=== PATIENT | male | born 1980 | race Caucasian/White ===

== ENCOUNTER 2022-02-12 12:44 | Emergency (ER) | payer OTHER, SELFPAY ==
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
[2022-02-12 12:52] VITALS: BP 155/88; PULSE 102; O2SAT 96
[2022-02-12 12:53] VITALS: BP 137/64; PULSE 101; RESP 12; TEMP 36.5; O2SAT 97
[2022-02-12 12:54] VITALS: BP 137/64; PULSE 95; RESP 16; O2SAT 97; BMI 22.9
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
--- NOTE | 2022-02-12 12:58 | ECG_ITS ---
Test Reason : syncope Blood Pressure : / mmHG Vent. Rate : 081 BPM Atrial Rate : 081 BPM P-R Int : 170 ms QRS Dur : 110 ms QT Int : 366 ms P-R-T Axes : 052 050 048 degrees QTc Int : 425 ms Normal sinus rhythm Incomplete right bundle branch block Borderline ECG No previous ECGs available Referred By: Pooja Contreras Electronically Signed By:Teo Herman
[2022-02-12] MEDS: Ketorolac Tromethamine 15 MG/ML VIAL IM (13:15)
[2022-02-12] MEDS: Cyclobenzaprine HCl 5 MG TABLET PO (13:16)
[2022-02-12] MEDS: Ondansetron ODT 4 MG TAB.RAPDIS TRANSLINGU (14:09)
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
[2022-02-12 14:52] LABS: MANUAL DIFF FLAG NO
[2022-02-12 15:03] LABS: Basophils Percent Auto 0.1 % (0-2); Hematocrit 40.7 % (42.0-52.0); Hemoglobin 13.9 g/dl (14.0-18.0); Imm Gran Abs Auto 0.17 X10*3/uL (0.00-0.03); Lymphocytes Absolute Auto 0.6 X10*3/uL (1.2-4.9); Lymphocytes Percent Auto 3.3 % (20-40); Mean Corpuscular HGB Conc 34.2 g/dl (31.0-36.0); Mean Corpuscular Hemoglobin 31.7 pg (27.0-33.0); Mean Corpuscular Volume 92.9 fL (80.0-98.0); Mean Platelet Volume 10.6 fL (9.4-12.4); Monocytes Absolute Auto 1.2 X10*3/uL (0.1-1.2); Neutrophils Absolute Auto 15.5 x10*3/uL (2.0-8.3); Neutrophils Percent Auto 88.6 % (45-73); Platelet Count 219 X10*3/uL (160-400); Red Blood Count 4.38 X10*6/uL (4.60-5.80); Red Cell Distribution Width 13.5 % (11.0-16.0); White Blood Count 17.5 X10*3/uL (4.8-10.8)
[2022-02-12 15:11] LABS: Alanine Aminotransferase 45 U/L (0-40); Albumin Level 4.7 g/dL (3.5-5.0); Alkaline Phosphatase 78 U/L (39-117); Anion Gap 11 (12-20); Aspartate Amino Transferase 46 U/L (5-37); Bilirubin Total 0.6 mg/dL (0.0-1.0); Blood Urea Nitrogen 20 mg/dL (9-16); Calcium 10.1 mg/dL (8.4-10.2); Carbon Dioxide 26 mmol/L (22-29); Chloride 102 mmol/L (96-108); Creatinine Clr Calc Pharmacy 96.8; Estimated Glomerular Filt Rate > 60; Glucose Random 108 mg/dL (60-115); Magnesium 2.6 mg/dL (1.6-2.6); Potassium 4.2 mmol/L (3.3-5.1); Sodium 135 mmol/L (135-145); Total Protein 7.7 g/dL (6.5-8.0)
[2022-02-12 15:15] LABS: Troponin-I High Sensitivity < 3.5 ng/L (<3.5-35.0)
--- NOTE | 2022-02-12 15:15 | PC.NURSE ---
C COLLAR CLEARED BY PROVIDER
[2022-02-12 15:48] VITALS: BP 117/70; PULSE 83; RESP 20; TEMP 37; O2SAT 98
[2022-02-12 16:55] VITALS: BP 137/90; PULSE 86; RESP 14; TEMP 37.2; O2SAT 98
== END 2022-02-12 17:03 | disposition home or self-care (01) ==
PROVIDERS: Physician Assistant Medical; Emergency Provider Emergency Medicine
DX: Z04.1 Encounter for examination and observation following transport accident (principal)
CPT/HCPCS: 36415; 70450; 71046; 72125; 80053; 83735; 84484; 85025; 93005; 96372; 99284; 99285; J1885

== ENCOUNTER 2024-01-06 14:59 | Outpatient (AMB) | payer OTHER, SELFPAY ==
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
[2024-01-06 15:14] VITALS: BP 98/82; PULSE 75; O2SAT 96; BMI 21.1
== END 2024-01-06 16:36 | disposition home or self-care (01) ==
PROVIDERS: PCP Student in an Organized Health Care Education/Training Program; Visit Provider Nurse Practitioner Family
DX: R56.9 Unspecified convulsions (principal); G47.50 Parasomnia, unspecified; G47.9 Sleep disorder, unspecified; R06.83 Snoring; G47.19 Other hypersomnia
CPT/HCPCS: 99204

== ENCOUNTER → 2024-01-06 14:59 | Outpatient (BNVA) | payer OTHER, SELFPAY | PROVIDERS: PCP Student in an Organized Health Care Education/Training Program; Visit Provider Nurse Practitioner Family ==

== ENCOUNTER 2024-04-13 13:14 | Outpatient (AMB) | payer OTHER, SELFPAY ==
[2024-04-13 13:17] VITALS: BP 102/76; PULSE 87; O2SAT 97; BMI 20.1
--- NOTE | 2024-04-13 13:17 | A.OFFVIS_ITS ---
Vital Signs 04/13/24 13:17 04/13/24 13:21 Height 5 ft 9.5 in 5 ft 9.5 in Weight 138 lb 138 lb BMI 20.1 20.1 BP 102/76 Blood Pressure Location Rt brachial Position Sitting Pulse 87 Pulse Source Pulse Oximeter Pulse Oximetry (%) 97 Oxygen Delivery Method Room Air Intake Visit Reasons: 3 month F/U-LVM Intake Note: Patient presents for 3 month follow up. patient has some good days were he gets sleep and some days not as much. Allergies No Known Allergies Allergy (Verified 04/13/24 13:19) Medication List - Last Reconciled 04/13/24 by Jackeline Huffman, FÁTIMA cyclobenzaprine 10 mg PO BID PRN gabapentin 300 mg PO TID levetiracetam (Keppra) 500 mg PO Q12H HPI Comments Details: 43-yr-old male presents for f/u visit. Pt denies any significant interval medical changes. Pt states that he likely had a nocturnal breakthrough seizure- woke up having bitten his tongue with muscle tightness and soreness. He had forgotten to take h is Keppra for a few days. He has since resumed his Keppra 500mg bid. He continues to have sleep difficulties. He has not had the in-lab sleep study yet- he had a few questions r/t doing the sleep study d/t his work schedule. He works days during the week and does sound work in the evenings on the weekend. PFSH Family History Father Skin cancer Social History Alcohol intake: current Alcohol intake frequency: a few times a week Patient Tobacco Use Status: Current everyday Tobacco user Substance Use Type: Marijuana Review of Systems Const All systems reviewed & are unremarkable except as noted in HPI and below Physical Exam Vital Signs: Last Vital Signs Pulse 87 04/13/24 13:17 BP 102/76 04/13/24 13:17 Pulse Ox 97 04/13/24 13:17 Oxygen Delivery Method Room Air 04/13/24 13:17 BMI result Body Mass Index 20.1 Const General: cooperative and no acute distress Orientation/consciousness: patient oriented x3 HEENT Head: Yes normocephalic Resp Effort & Inspection: normal respiratory effort and able to speak in complete sentences Neuro General: patient oriented x3, gait normal and CN's II-XI intact bilaterally Cognition (Neuro): normal cognition Motor exam (neuro): 5/5 motor strength present throughout Psych Appearance: grossly normal Mental Status: mental status grossly normal Speech and movement: Normal speech and movement present Affect: normal affect Attitude: cooperative Thought process: Normal thought process present Thought content: Normal thought content present Insight: Good insight present (Psych) Judgement: Good judgement present (Psych) Assessment & Plan Assessment & Plan (1) Sleep difficulties: Code(s): G47.9 - Sleep disorder, unspecified Category: Medical (2) Parasomnia: Code(s): G47.50 - Parasomnia, unspecified Category: Medical (3) Snoring: Code(s): R06.83 - Snoring Category: Medical (4) Seizure: Code(s): R56.9 - Unspecified convulsions Category: Medical Plan For seizure- Stressed importance of being complaint w/ Keppra 500mg bid. F/u w/ Corin Pansci PA as scheduled. ? For sleep difficulties: Reviewed pt's questions and concerns r/t in-lab PSG- all questions answered. Will f/u on status of order for in-lab PSG to assess for sleep apnea and parasomnias in setting of h/o nocturnal siezure. ? f/u in 6 months or sooner as needed. Coding Level of Care Code Est Pt Level 3 (76971) Diagnoses Sleep difficulties G47.9 Parasomnia G47.50 Snoring R06.83 Seizure R56.9
[2024-04-13 13:21] VITALS: BMI 20.1
== END 2024-04-13 13:38 | disposition home or self-care (01) ==
PROVIDERS: PCP Student in an Organized Health Care Education/Training Program; Visit Provider Nurse Practitioner Family
DX: G47.9 Sleep disorder, unspecified (principal); G47.50 Parasomnia, unspecified; R06.83 Snoring; R56.9 Unspecified convulsions
CPT/HCPCS: 99213

== ENCOUNTER → 2024-04-13 13:14 | Outpatient (BNVA) | payer OTHER, SELFPAY | PROVIDERS: PCP Student in an Organized Health Care Education/Training Program; Visit Provider Nurse Practitioner Family ==